=== PATIENT | female | born 1975 | race Caucasian/White ===

== ENCOUNTER → 2018-02-11 | Outpatient (CLI) | payer OTHER ==
[~2018-02-11] MED LIST: ALBINS/ INH; CITA10TA8 PO; CPR500 PO; FRS/40 PO; METF-384 PO; MONT1TAB5 PO; RANI150T85 PO; VNTHFA/IN INH
--- NOTE | 2018-02-12 06:48 | SPLIT NIGHT TECHNICIAN REPORT ---
[facility] Split Night Polysomnogram - Neurology Professor Report Study date: 02/11/2018 Referring Physician: ALLA GÓMEZ M.D. Name: HARPREET MORALEZ Neurology Professor: Mis Akhtar, PSGT. Date of : 1975 Height: 42 years, Height 5' 5" Sex: Female Weight: 430 lbs Age: 42 Neck Circum:20.5 inches BMI: Medications: 71.55 Advair, Albuterol, Buspar 10 mg, Celexa 40 mg, Claritin 10 mg, Glucophage 1000 mg, Lasix 40 mg, Nasanex 50 mcg/act, Proair, Singular, Zantac 150 mg. Patient History 42-year-old female presents tonight for a split night study >15. She states that she suffers from anxiety and depression. She wakes often during the night and never feels refreshed when she wakes. Patient states that her states that her legs move often during sleep.Ess 14, Neck= 20.5 inches. Parameters Monitored NPSG: E1-M2, E2-M1, Fp1-M2, Fp2-M1, F3-M2, F4-M2, F4-M1, C3-M2, C4-M2, C4-M1, O1-M2, O2-M2, O2-M1, T3-M2, T4-M1, P3-M2, P4-M1, CHIN1, CHIN2, HR, EKG, Legs, PFLOW, SNOR, FLOW, CFLOW, Tidal Volume, THOR, ABDO, SpO2, PLTH, CPRESS, ETCO2 Wave, ETCO2, pH SLEEP SUMMARY DATA DIAGNOSTIC TREATMENT Lights Out: 10:56:25 PM NONE Lights On: 1:29:55 AM 5:30:25 AM Total Recording Time (TRT): 146.6 min. 224.9 min. Total Sleep Time (TST): 32.5 min. 149.0 min. NREM Time: 32.5 min. 119.5 min. REM Time: 0.0 min. 29.5 min. Sleep Period Time (SPT): 101.0 min. 207.5 min. Sleep Efficiency (SE): 22 % 67 % Sleep Latency: 40.5 min. NONE min. Arousal Index: 27.7 16.5 PAP Treatment Levels: 4, 5, 7, 9, 10, 12, 13 * Optimal Pressure(s) SLEEP STAGING DATA DIAGNOSTIC TREATMENT Duration (min) TST % Duration (min) TST % Stage Wake: 114.1 min. -- 74.9 min. -- WASO: 80.5 min. -- 58.5 min. -- NREM: 32.5 min. 100 % 119.5 min. 80 % Stage N1: 2.5 min. 8 % 6.0 min. 4 % Stage N2: 30.0 min. 92 % 69.5 min. 47 % Stage N3: 0.0 min. 0 % 44.0 min. 30 % REM: 0.0 min. 0 % 29.5 min. 20 % POSITIONAL DATA Event Count Index Event Count Index Supine: N/A N/A 21 29.4 Supine NREM: N/A N/A 21 29.4 Supine REM: N/A N/A N/A N/A Non-Supine: 30 55.4 29 16.4 Non-Supine NREM: 30 55.4 27 21.1 Non-Supine REM: N/A N/A 2 4.1 AROUSAL SUMMARY DATA: Event Count Index Event Count Index Apnea Arousals: 0 0.0 1 4.8 Hypopnea Arousals: 5 9.2 3 1.2 Snore Arousals: 1 1.8 2 0.8 PLM Arousals: 0 0.0 0 0.0 Non-Specific Arousals: 9 16.6 35 14.1 Total Arousals: 15 27.7 41 16.5 MYOCLONUS (PLM) Event Count Index Event Count Index PLM: 0 0.0 0 0.0 PLM AROUSAL: 0 0.0 0 0.0 PLM W/O AROUSAL 0 0.0 0 0.0 PLM W/RESP EVENT 0 0.0 0 0.0 MYOCLONUS (PLM) Event Count Index Event Count Index LM: 0 3.7 8 3.2 LM AROUSAL: 0 0.0 0 0.0 LM W/O AROUSAL LM W/RESP EVENT LM NON SPECIFIC 2 3.7 8 3.2 HEART RATE DATA DIAGNOSTIC TREATMENT Sleep (bpm): 90 88 REM (bpm): N/A 90 NREM (bpm): 88 91 Tachycardia Count: 0 0 Tachycardia Duration: 0.00 0 Bradycardia Count: 0 0 Bradycardia Duration: 0.00 0 DIAGNOSTIC PORTION TREATMENT PORTION RESPIRATORY DATA Event Count Index Event Count Index AHI: -- 55.4 -- 20.1 RDI: -- 55.4 -- 20 Obstructive Apnea: 0 0.0 4 1.6 Central Apnea: 0 0.0 7 2.8 Mixed Apnea: 0 0.0 1 0.4 Hypopnea: 30 55.4 38 15.3 RERA: 0 0.0 0 0.0 Total Apneas: 0 0.0 12 4.8 RESPIRATORY DATA REM NREM SLEEP REM NREM SLEEP Supine Position: Obstructive Apneas: N/A N/A N/A N/A 1 1 Central Apneas: N/A N/A N/A N/A 6 6 Mixed Apneas: N/A N/A N/A N/A 1 1 Hypopneas: N/A N/A N/A N/A 13 13 RERA N/A N/A N/A N/A 0 0 Total Supine Events: N/A N/A N/A N/A 21 21 Supine AHI: N/A N/A N/A N/A 29.4 29.4 Supine RDI: N/A N/A N/A N/A 29.4 29.4 REM NREM SLEEP REM NREM SLEEP Non-Supine Position: Obstructive Apneas: N/A 0 0 0 3 3 Central Apneas: N/A 0 0 0 1 1 Mixed Apneas: N/A 0 0 0 0 0 Hypopneas: N/A 30 30 2 23 25 RERA N/A 0 0 0 0 0 Total Supine Events: N/A 30 30 2 27 29 Supine AHI: N/A 55.4 55.4 4.1 21.1 16.4 Supine RDI: N/A 55.4 55.4 4.1 21.1 16.4 OXYGEN DESTAURATION DATA: Event Count Index Event Count Index REM Desaturations: N/A N/A 5 10.2 NREM Desaturations: 95 175.4 150 75.3 SNORE DATA DIAGNOSTIC TREATMENT Snore Time: 1.6 2:02:55 AM Snore TST%: 1 2 Snore Arousal Count: 1 2 Snore Arousal Index: 1.8 0.8 Desaturation Event Summary: Minimum %SpO2 Event Count Mean/Min/Max Duration(sec.) Desaturation Index % Time In Bed > 90 242 12.1 / 4.3 / 51.8 54.8 71.5 86 - 90 35 14.0 / 4.3 / 43.3 22.9 24.8 81 - 85 1 21.0 / 21.0 / 21.0 5.5 2.9 76 - 80 0 N/A 0.0 0.7 71 - 75 0 N/A 0.0 0.1 66 - 70 0 N/A 0.0 0.0 61 - 65 0 N/A 0.0 0.0 56 - 60 0 N/A 0.0 0.0 51 - 55 0 N/A 0.0 0.0 < 50 0 N/A 0.0 0.0 OXYGEN SATURATION DATA DIAGNOSTIC TREATMENT SpO2 Mean Sleep: 88 % 91 % SpO2 Mean REM: N/A % 90 % SpO2 Mean NREM: 88 % 91 % SpO2 Minimum Sleep: 74 % 84 % SpO2 Minimum REM: N/A % 86 % SpO2 Minimum NREM: 74 % 84 % Time Below 90% (TST): 18.3 32.7 Time Below 88% (TST): 13.7 10.4 Total REM NREM Awake <50% 0.0 min. 0.0 min. 0.0 min. 0.0 min. 51 - 60% 0.0 min. 0.0 min. 0.0 min. 0.0 min. 61 - 70% 0.0 min. 0.0 min. 0.0 min. 0.0 min. 71 - 80% 2.8 min. 0.0 min. 2.8 min. 0.0 min. 81 - 90% 102.8 min. 15.4 min. 59.1 min. 28.4 min. 91 - 100% 264.8 min. 14.1 min. 90.2 min. 160.5 min. Average 92 90 91 93 Minimum SpO2 74 86 74 81 Desaturation Event Index 40.8 10.2 96.7 0.6 # Desat. Events below 89% 154 3 150 1 Time(%) with Saturation below 89% 12.4 0.9 8.5 3.0 Time(min.) with Saturation below 89% 45.8 3.2 31.5 11.1 Recording Neurology Professor Comments: Split -Night: MS. Moralez slept in the right, left, supine and prone and upright positions. No cardiac arrhythmia or PLM's noted. No bruxism noted. Snoring was noted and scored as a 4 on a scale of 1 through 5. (0=no snoring, 5=snoring loud enough to be heard through a closed door or down the [place] way) At 1:30 am, MS. Moralez has met specific Split-Night criteria during the diagnostic portion of this study. CPAP was initiated at +4 CMH2O and up-titrated to an optimal level of +13 CMH2O, which nearly eliminated all respiratory events and snoring. A [employer] FX, was used during titration Ms. Moralez awoke to use the restroom one time during the night. Ms. Moralez stated, I did not sleep as well as I do when I am in my own bed. The final report will be interpreted and signed by a sleep physician. The completed physician report will then be placed in the patient medical record. Patient stated that she sleeps sitting up in the bed and that is what she did here most of the study. Snoring and moaning was heard prior to treatment. At 1:30 am the patient had meet split night criteria, a full was applied but the patient was not able to tolerate it, a nasal was tried and she did pretty well with it, I'm sure after some time with it she will become better acquainted with the mask and pressure. Therapy Event: Therapy (cm H20) 0 4 5 7 9 10 12 13 Total Time at Pressure (min.) 146.6 60.3 42.0 12.1 7.3 14.9 80.4 6.9 TST at Pressure (min.) 32.5 42.9 40.5 12.1 7.3 14.9 24.4 6.9 # Periods 1 1 1 1 1 1 1 1 Sleep Onset (min.) 40.5 16.4 0.0 0.0 0.0 0.0 0.0 0.0 REM Onset (min.) N/A 44.9 0.0 N/A N/A N/A N/A N/A Sleep Efficiency % 22 71 96 100 100 100 30 100 Wakefulness (%) 77.8 28.8 3.6 0.0 0.0 0.0 69.7 0.0 Wakefulness (min.) 114.1 17.4 1.5 0.0 0.0 0.0 56.0 0.0 NREM 1 (%) 1.7 5.0 1.2 0.0 0.0 0.0 3.1 0.0 NREM 1 (min.) 2.5 3.0 0.5 0.0 0.0 0.0 2.5 0.0 NREM 2 (%) 20.5 38.1 40.3 62.8 0.0 0.0 18.7 100.0 NREM 2 (min.) 30.0 23.0 16.9 7.6 0.0 0.0 15.1 6.9 NREM 3 (%) 0.0 2.5 21.4 37.2 100.0 100.0 8.5 0.0 NREM 3 (min.) 0.0 1.5 9.0 4.5 7.3 14.9 6.8 0.0 REM (%) 0.0 25.6 33.5 0.0 0.0 0.0 0.0 0.0 REM (min.) 0.0 15.4 14.1 0.0 0.0 0.0 0.0 0.0 # Arousals 15 12 15 0 0 0 9 5 Arousal Index 27.7 16.8 22.2 0.0 0.0 0.0 22.2 43.2 # Snore 90 10 64 8 2 0 11 5 Snore Index 166.2 14.0 94.9 39.6 16.4 0.0 27.1 43.2 AHI 55.4 2.8 14.8 0.0 32.9 36.3 44.3 60.4 AHI Supine N/A N/A 34.0 0.0 32.9 36.3 61.7 N/A AHI Non-Supine 55.4 2.8 14.0 N/A N/A N/A 37.6 60.4 NREM AHI 55.4 0.0 22.7 0.0 32.9 36.3 44.3 60.4 REM AHI N/A 7.8 0.0 N/A N/A N/A N/A N/A RDI 55.4 2.8 14.8 0.0 32.9 36.3 44.3 60.4 # Obstructive 0 0 2 0 0 1 1 0 # Central Ap 0 0 1 0 1 3 2 0 # Mixed 0 0 0 0 0 1 0 0 # Hypopneas 30 2 7 0 3 4 15 7 RERAS 0 0 0 0 0 0 0 0 Total Respiratory Events 30 2 10 0 4 9 18 7 Time Below SpO2 89.00% (min.) 16.0 3.0 1.8 8.3 1.1 1.2 2.1 1.1 Mean NREM SpO2 (%) 88 92 91 88 91 92 92 92 Mean REM SpO2 (%) N/A 90 91 N/A N/A N/A N/A N/A Mean Sleep SpO2 (%) 88 91 91 88 91 92 92 92 Min NREM SpO2 (%) 74 89 85 85 85 85 84 84 Min REM SpO2 (%) N/A 86 88 N/A N/A N/A N/A N/A Position Supine (min.) 0.0 0.0 1.8 12.1 7.3 14.9 6.8 0.0 Position Non-supine (min.) 32.5 42.9 38.7 0.0 0.0 0.0 17.6 6.9 LM Index Sleep 3.7 0.0 3.0 0.0 0.0 0.0 7.4 25.9 LM Index NREM 3.7 0.0 4.5 0.0 0.0 0.0 7.4 25.9 LM Index REM N/A 0.0 0.0 N/A N/A N/A N/A N/A Mean Heart Rate (bpm) 90 91 92 92 87 84 79 77 Min Heart Rate (bpm) 58 60 73 80 68 72 59 67
--- NOTE | 2018-02-15 08:08 | POLYSOMNOGRAPH REPORT ---
CLINICAL DATA: The patient is a 42-year-old female who has a history of snoring, disturbed nocturnal sleep and excessive daytime somnolence. Her [place] sleepiness scale score is 14. She has a BMI of 71.55. This was an in-lab split night sleep study. SLEEP ARCHITECTURE: The study was divided into diagnostic and treatment portion utilizing nasal CPAP during the treatment portion of the study. During the diagnostic portion of the study, the sleep period time is 101 minutes. The total sleep time was 32.5 minutes. The sleep efficiency was severely reduced to 22%. The sleep latency was prolonged to 40.5 minutes. Sleep consisted of stage N1 8%, stage N2 92%, stage N3 0%, stage, REM 0%. During the treatment portion of the study, the sleep period time was 207.5 minutes. The total sleep time was 149 minutes. The sleep efficiency was moderately reduced to 67%. Sleep consisted of stage N1 4%, stage N2 47%, stage N3 30%, stage REM 20%. AROUSAL DATA: During the diagnostic portion of the study, the patient had 15 arousals including 9 nonspecific arousals, 1 snoring arousal, and 5 hypopnea arousals. The arousal index was 27.7. During the treatment portion of the study, the patient had 41 arousals including 35 nonspecific arousals, 2 snoring arousals, 3 hypopnea arousals, and 1 apnea arousal. The arousal index was 16.5. PLM DATA: The patient had a normal periodic limb movement recording during both the diagnostic and therapeutic portions. EKG: The underlying cardiac rhythm was normal sinus. The heart rates averaged 88-91 beats per minute. No arrhythmia was noted. RESPIRATORY DATA: During the diagnostic portion of the study, the patient had a total of 30 respiratory events, all hypopneas. Hypopneas were scored according to the 4% desaturation rule. The apnea hypopnea index was severely elevated at 55.4. During the treatment portion of the study, the patient's respiratory events were treated with nasal CPAP. She had a total of 50 respiratory events including 4 obstructive apneas, 7 central apneas, 1 mixed apnea, and 38 hypopneas. The apnea hypopnea index was 20.1. OXIMETRY DATA: During the diagnostic portion of the study, the mean saturation was 88%. The minimum saturation was 74%. There was 13.7 minutes with saturations less than 88%. During the treatment portion of the study, the mean saturation was 91%. The minimum saturation was 84%. There was a total of 10.4 minutes with saturations less than 88%. UNIFORM ROOM ATTENDANT COMMENTS: Ms. Moralez slept in the right, left, supine, and prone and upright positions. No cardiac arrhythmia or PLMs noted. No bruxism noted. Snoring was noted and scored as a 4 on a scale of 1 through 5. At 1:30 a.m., the patient met specific split night criteria during the diagnostic portion of the study. CPAP was initiated at 4 cm and up titrated to a final level of 13 cm. A ResMed Mirage FX nasal mask was used. The patient awakened to use the restroom one time during the night. She stated she did not sleep as well as she does in her own bed. IMPRESSION: Severe obstructive sleep apnea. COMMENTS: The patient had very restless sleep. She had marked difficulty initiating sleep at the start of the study. When she did fall asleep, she had frequent respiratory events. She was then treated with nasal CPAP. Her sleep was better consolidated. There was a marked increase in stage N3 and REM sleep. Her sleep efficiency was still lower than normal. She persisted with respiratory events at the final pressure of 13 cm. In light of the fact that her respiratory events were not resolved, it would be advised that she be started at least initially on auto CPAP. RECOMMENDATIONS: 1. It is advised that the patient be started on auto CPAP with a minimum pressure of 6 and a maximum of 16. 2. The patient can utilize a ResMed Mirage FX nasal mask that was given to her from the sleep lab. She did very poorly with a full facemask. 3. Weight loss is advised in light of the severe elevation of body mass index at 71.55. 4. If possible, the patient should avoid sleeping in the supine position as there are typically increased respiratory events while supine.
== END | disposition home or self-care (01) ==
LOC: C.NEUR 21:00
PROVIDERS: ATTEND Internal Medicine Pulmonary Disease
DX: G47.33 Obstructive sleep apnea (adult) (pediatric) (principal)